=== PATIENT | female | born 1945 | race Caucasian/White ===

== ENCOUNTER → 2018-06-21 | Outpatient (CLI) | payer OTHER ==
[~2018-06-21] VITALS: Ht 157.5 cm; Wt 81.7 kg
[~2018-06-21] MED LIST: ADVAIR 500-501 EACH INH; ALBUTEROL2.5 MG/31 INH; ATORVASTATIN CA40 MG PO; BIOTIN10000 MC1 PO; CALCIUM 500 +1 EAC5 PO; CENTRUM SILVER1 EAC4 PO; CYMBALTA30 MG PO; IRON325 PO; KRILL OIL500 MG PO; LOSARTAN POTASS50 MG PO; MAGOX 400400 MG PO; NORCO 5-325 TA1 EACH PO; VENTOLIN HFA 1818 GM INH; VITAMIN D-32000 UNIT PO; ZOLPIDEM TARTRA10 MG PO
--- NOTE | ~2018-06-21 | P ---
[facility] [place] [address] PROCEDURE REPORT Name: STU FOSS Room #: REG [facility] Mandy.#: [id number] Admission: 06/21/18 Attend Phys: Christophe Bustillo Discharge: Date of : 49 Report #: [id number] THIS REPORT FOR: //name// CC: Christophe Crabtree DO DATE OF SERVICE: 06/21/2018 PROCEDURE PERFORMED: Colonoscopy with biopsies. HISTORY OF PRESENT ILLNESS: The patient is a 73-year-old female who is here for a screening colonoscopy. She has a previous history of gastric sleeve, intermittent nausea and vomiting. Upper endoscopy was just performed, which showed grade C erosive esophagitis. Surgical changes noted, otherwise normal. No family history of colon cancer. DESCRIPTION OF PROCEDURE: The risks and benefits of the procedure were explained to the patient, those risks including but not limited to bleeding, perforation, the risk of sedation. She understood these risks and gave informed consent. Sedation was given using ketamine and propofol per anesthesia. Next, a digital rectal exam was initially performed, which was normal. Next, using a standard Olympus colonoscope, the scope was placed in the patient's anus and advanced under direct vision to the cecum. The overall prep was good. Cecum and ileocecal valve were normal in appearance. Ascending colon was normal. In the transverse colon, a 5 mm sessile polyp was noted. This was removed with cold forceps, otherwise normal. Descending colon was normal. Multiple diverticula were noted in the sigmoid colon, no evidence of inflammation, otherwise normal. The rectal mucosa was normal. On retroflexion, no abnormalities were noted. The scope was then withdrawn and the procedure terminated. The patient tolerated the procedure well. IMPRESSION: 1. Small colonic polyp. 2. Sigmoid diverticulosis. 3. Otherwise, normal colonoscopy. RECOMMENDATIONS: 1. Await biopsy results. 2. If polyp is hyperplastic, consider repeat colonoscopy in 10 years; if adenomatous polyp, repeat colonoscopy in [address] [address] PROCEDURE REPORT Name: STU FOSS Room #: REG MARIELA Ball#: [id number] Admission: 06/21/18 Attend Phys: Christophe Bustillo Discharge: Date of : 49 Report #: [id number] Thank you for allowing me to participate in her care. By: [id number] Christophe Srinivasan MD /nt
--- NOTE | ~2018-06-21 | P ---
[facility] [place] [address] PROCEDURE REPORT Name: STU FOSS Room #: REG [facility] Mandy.#: [id number] Admission: 06/21/18 Attend Phys: Christophe Bustillo Discharge: Date of : 49 Report #: [id number] THIS REPORT FOR: //name// CC: Christophe Crabtree DO DATE OF SERVICE: 06/21/2018 PROCEDURE PERFORMED: Upper endoscopy with biopsies. HISTORY OF PRESENT ILLNESS: The patient is a 73-year-old female with a history of intermittent nausea and vomiting typically occurring at the time of bowel movement. She has had a previous lap band surgery for weight loss. This was later removed as the lap band migrated. She then underwent a gastric sleeve surgery. She denies any dysphagia or significant heartburn symptoms. Plan is for EGD and colonoscopy today. DESCRIPTION OF PROCEDURE: The risks and benefits of the procedure were explained to the patient, those risks including but not limited to bleeding, perforation, the risk of sedation. She understood these risks and gave informed consent. Sedation was given using ketamine and propofol per anesthesia. Next, using a standard Olympus upper endoscope, the scope was placed in the patient's mouth and advanced under direct vision through the esophagus, stomach and into the second portion of the duodenum. The larynx was normal in appearance. The upper and mid esophagus was normal in appearance. In the distal esophagus, there was evidence of grade C erosive esophagitis. Upon entering the stomach, surgical changes consistent with gastric sleeve were noted. I was able to advance the scope through the sleeve without difficulty. This was well healed. There was no evidence of ulcerations or erosions within the gastric mucosa. Biopsies were obtained to rule out H. pylori. The pylorus was normal and patent. The duodenal bulb, first and second portion were all normal. Biopsies were obtained to rule out the possibility of celiac sprue. The scope was then withdrawn and the procedure terminated. The patient tolerated the procedure well. IMPRESSION: 1. Surgical changes consistent with gastric sleeve. 2. Grade C erosive esophagitis. 3. Otherwise, normal upper endoscopy. RECOMMENDATIONS: 1. Await biopsy results. 2. Would recommend daily PPI therapy. 3. We will proceed with colonoscopy next today. [address] [address] PROCEDURE REPORT Name: STU FOSS Room #: REG Emmett Ball#: [id number] Admission: 06/21/18 Attend Phys: Christophe Bustillo Discharge: Date of : 49 Report #: [id number] Thank you for allowing me to participate in her care. By: [id number] Christophe Srinivasan MD /cl
--- NOTE | ~2018-06-21 | PATH ---
[facility] [place] [address] PATHOLOGY RPT PROCEDURE Name: RADHA HUERTAS Room #: REG [facility] M.R.#: [id number] Admission: 06/21/18 Date of : 49 Discharge: Report #: [id number] Path Case #: [id number] [facility] Accession Number: [id number] . 01 Material submitted: . PART A: BX OF DUODENUM PART B: BX OF GASTRIC PART C: BX OF POLYP AT TRANSVERSE COLON . 01 Clinical history: . History of abdominal pain, history of nausea/vomiting Colon polyp, diverticulosis, gastritis, esophagitis A: Rule out sprue B: Rule out H. pylori . 02 Diagnosis: A. Duodenum "duodenum, biopsy": - No obvious diagnostic changes. - There is no evidence of acute cryptitis, granulomas, adenomatous change, sprue-like changes, or malignancy. . B. Gastric "biopsy of gastric": - Mild chronic reactive gastropathy. - The immunoperoxidase stain for Helicobacter pylori is negative. . C. Colonic mucosa "biopsy of polyp at transverse colon": - Fragments of hyperplastic polyps. - There is no evidence of adenomatous change, high-grade dysplasia or malignancy. (SHA:andreia; 06/25/2018) QMS/06/25/2018 . 02 Electronically signed: . Chris Heller MD, Pathologist NPI- [id number] . 01 Gross description: . A. The specimen is received in formalin, labeled "Radha Huertas BX of duodenum" and consists of multiple fragments of soft siegel tissue measuring 0.9 x 0.6 x 0.2 cm in aggregate which are entirely submitted in A1. . B. The specimen is received in formalin, labeled "Radha Huertas BX of gastric" and consists of 2 fragments of soft siegel-brown tissue measuring 0.5 x 0.3 x 0.2 cm and 0.3 x 0.2 x 0.1 cm. They are entirely submitted in B1. . C. The specimen is received in formalin, labeled "Radha Huertas BX of [address] [address] PATHOLOGY RPT PROCEDURE Name: RADHA HUERTAS Room #: REG MARIELA Galvan.#: [id number] Admission: 06/21/18 Date of : 49 Discharge: Report #: [id number] Path Case #: [id number] polyp in transverse" and consists of multiple fragments of soft siegel tissue measuring 1.0 x 0.6 x 0.2 cm in aggregate which are entirely submitted in C1. (SDY; 06/24/2018) SYU/SYU . 02 Pathologist provided ICD-10: K31.9, K63.5 . 02 CPT . 369425, 697506, 739196, L90081 Specimen Comment: A courtesy copy of this report has been sent to Specimen Comment: [phone], . Specimen Comment: Report sent to / DR RAYMOND Performed at: [address], [place] [id number] MD Brooks Patterson MD Phone: [phone] Performed at: [address] [id number] MD Kelsy Wolff MD Phone: [phone]
== END | disposition home or self-care (01) ==
LOC: GI 06:35
DX: Z12.11 Encounter for screening for malignant neoplasm of colon (principal); K63.5 Polyp of colon; K57.30 Diverticulosis of large intestine without perforation or abscess without bleeding; K31.9 Disease of stomach and duodenum, unspecified; K22.10 Ulcer of esophagus without bleeding; I10 Essential (primary) hypertension; D64.9 Anemia, unspecified; J45.909 Unspecified asthma, uncomplicated; G47.33 Obstructive sleep apnea (adult) (pediatric); K21.9 Gastro-esophageal reflux disease without esophagitis; Z98.890 Other specified postprocedural states; Z98.41 Cataract extraction status, right eye; Z98.42 Cataract extraction status, left eye; Z98.51 Tubal ligation status; Z90.3 Acquired absence of stomach [part of]; Z79.899 Other long term (current) drug therapy
CPT/HCPCS: 62110; 62900